=== PATIENT | male | born 1940 | race Caucasian/White ===

== ENCOUNTER 2019-06-28 07:33 | Day surgery (SDC) | payer MEDICARE, BC ==
[2019-06-28] VITALS (12 sets, daily range): BP systolic 100–153; BP diastolic 53–69
[~2019-06-28] VITALS: Ht 177.8 cm; Wt 81.5 kg
[2019-06-28] MEDS ORDERED: diphenhydrAMINE 25mg capsule PO PRN (07:55)
[2019-06-28] MEDS ORDERED: LORazepam 0.5 MG tablet PO PRN (07:55)
[2019-06-28] MEDS ORDERED: nitroGLYCERIN 0.4mg SUBLingual tab SL PRN ×2 (07:55→11:00)
[2019-06-28] MEDS ORDERED: normal saline 1,000 ML IV SCH (07:55)
[2019-06-28] MEDS ORDERED: LOSA1TAB41 PO (08:05)
[2019-06-28] MEDS ORDERED: ESCI10TA61 PO (08:05)
[2019-06-28] MEDS ORDERED: MULT-1085 PO (08:05)
[2019-06-28] MEDS ORDERED: DONE10TA7 PO (08:05)
[2019-06-28] MEDS ORDERED: FLU VACC QS2019-20 36MOS UP/PF 60 MCG/0.5 ML SYRINGE IMVAC ONE (09:00)
[2019-06-28] MEDS ORDERED: iohexol 350 MG/ML 50ML vial IV ONE ×2 (09:13→09:54)
[2019-06-28] MEDS ORDERED: fentaNYL/PF 50MCG/1 ML 2ML syringe ONE (09:13)
[2019-06-28] MEDS ORDERED: LIDOcaine 1% (10mg/ml)w/preservative injection 20ml MDV ONE (09:13)
[2019-06-28] MEDS ORDERED: midazolam 2 mg/2 ml injection ONE (09:13)
[2019-06-28] MEDS ORDERED: iohexol 350MG/ML 100ml bottle IV ONE (09:13)
[2019-06-28] MEDS ORDERED: HYDROcodone/acetaminophen 10/325mg tab PO PRN (11:00)
[2019-06-28] MEDS ORDERED: normal saline 1000ml 1,000 ML IV SCH (11:00)
[2019-06-28] MEDS ORDERED: HYDROcodone/acetaminophen 5mg/325mg tablet PO PRN (11:00)
[2019-06-28] MEDS ORDERED: OXAZEpam 15mg capsule PO PRN (11:00)
[2019-06-28] MEDS ORDERED: proCHLORperazine 10 MG/2 ml inj IV PRN (11:00)
[2019-06-28] MEDS ORDERED: ondansetron/PF 4mg/2ml inj IV PRN (11:00)
--- NOTE | 2019-06-28 16:02 | NUR ---
correction FemoStop was off patient at this time, vs stable as charted. no s/s of bleeding.
== END 2019-06-28 17:05 | disposition home or self-care (01) ==
LOC: SSTAY O 07:33
PROVIDERS: ATTEND Internal Medicine Cardiovascular Disease
DX: R94.39 Abnormal result of other cardiovascular function study (principal); I25.119 Atherosclerotic heart disease of native coronary artery with unspecified angina pectoris; J98.4 Other disorders of lung; I10 Essential (primary) hypertension; E78.5 Hyperlipidemia, unspecified; Z79.899 Other long term (current) drug therapy; Z87.891 Personal history of nicotine dependence
CPT/HCPCS: 71250; 93005; 93458; 99152; 99153; C1769; J1644; J2001; J2250; J3010; J7030; Q0163; Q9967; A4620; A6258; Q2037